=== PATIENT | male | born 1970 | race Caucasian/White ===

== ENCOUNTER 2017-03-11 21:20 | Emergency (ER) | payer BC ==
[2017-03-11 21:44] VITALS: BP 148/96
--- NOTE | 2017-03-11 21:56 | EDM.PDOC ---
ED HPI Trauma - General Chief Complaint: Upper Extremity Injury/Pain Stated Complaint: SMASHED MIDDLE FINGER LEFT HAND Time Seen by Provider: 03/11/17 21:51 Source: Reports: Patient History Limitations: Reports: No limitations - History of Present Illness INITIAL COMMENTS - FREE TEXT/NARRATIVE: 46-year-old male comes to the ED for evaluation of crush type injury to his left hand that occurred about 1500 hours today. It occurred as he was taking a break from off of his truck. He is not sure how it got pinched but basically the distal end of the third finger became crushed and impinged. Developing subungual hematoma since that time. Pain is constant and throbbing primarily in that finger. No open wounds or lacerations occurred. Does have a blood blister on the volar side of the third finger over the middle phalanx. Symptom Onset Date: 03/11/17 Symptom Onset Time: 15:00 Occurred When: this afternoon Occurred Where: home Method of Injury: other (First type injury.) Severity: moderate Pain/Injury Location: Reports: upper extremity, left (Left distal third finger with a subungual hematoma.) Consciousness: Reports: no loss of consciousness Associated Symptoms: Reports: no other symptoms Allergies/ADRs: Allergies No Known Allergies Allergy (Verified 03/11/17 21:44) Home Medications: Ambulatory Orders oxyCODONE HCl/Acetaminophen [Percocet 5-325 mg Tablet] 1 - 2 each PO Q4H PRN # 10 tablet 03/11/17 Past Medical History - Past Health History Medical/Surgical History: Denies Medical/Surgical History Social & Family History - Family History Family Medical History: Noncontributory - Tobacco Use Smoking Status *Q: Never Smoker - Caffeine Use Caffeine Use: Reports: None - Recreational Drug Use Recreational Drug Use: No - Living Situation & Occupation Living situation: Reports: Occupation: employed Review of Systems - Review of Systems Review Of Systems: See Below Constitutional: Reports: no symptoms Eyes: Reports: no symptoms Ears: Reports: no symptoms Nose: Reports: no symptoms Mouth/Throat: Reports: no symptoms Respiratory: Reports: No Symptoms Cardiovascular: Reports: no symptoms GI/Abdominal: Reports: No symptoms Genitourinary: Reports: no symptoms Musculoskeletal: Reports: no symptoms Skin: Reports: no symptoms Neurological: Reports: No Symptoms Psychiatric: Reports: no symptoms Trauma Exam - Physical Exam Exam: See Below Exam Limited By: No limitations General Appearance: Reports: alert, mild distress Extremities: Reports: other (Examination was limited to his left hand. Of note she is right-hand dominant. He has large subligamentous hematoma taking up the entire nailbed on the left distal finger. There is a blood blister proximally 8 mm in diameter over the mid middle phalanx of the volar surface. No other injuries to the hand are appreciated.) Neurologic: Reports: acid changer II-XII nml as tested, no motor/sensory deficits, alert , normal mood/affect, oriented x 3 Skin: Reports: Normal color, Warm/dry - Abell Coma Score Best Eye Response (Abell): (4) open spontaneously Best Verbal Response (Abell): (5) oriented Best Motor Response (Carlos): (6) obeys commands Abell Total: 15 Course - Vital Signs Last Recorded V/S: Last Vital Signs Temp 36.6 C 03/11/17 21:41 Pulse 66 03/11/17 21:41 Resp 18 03/11/17 21:41 BP 148/96 H 03/11/17 21:41 Pulse Ox 97 03/11/17 21:41 - Orders/Labs/Meds Orders: Active Orders 24 hr Category Date Time Status Hand Comp Min 3V Lt [CR] Stat Exams 03/11/17 21:52 Taken Meds: Medications Discontinued Medications Generic Name Dose Route Start Last Admin Trade Name Ian PRN Reason Stop Dose Admin Ibuprofen 600 mg 03/11/17 22:52 03/11/17 23:09 Motrin PO 03/11/17 22:53 600 mg ONETIME ONE Administration Metoclopramide HCl 10 mg 03/11/17 22:52 03/11/17 23:10 Reglan PO 03/11/17 22:53 10 mg ONETIME ONE Administration Oxycodone/Acetaminophen 2 tab 03/11/17 22:52 03/11/17 23:09 Percocet 325-5 Mg PO 03/11/17 22:53 2 tab ONETIME ONE Administration - Radiology Interpretation Free Text/Narrative:: 46-year-old male to the ED with a painful swollen left third finger. States was crushed between a break from and the rim of the wheel about 1500 hours today. He has subsequently developed a subungual hematoma of the distal aspect of the left third finger. X-rays will be done to rule out a fracture. Minimal coronary attempted drainage of the subungual hematoma. The management. - Re-Assessments/Exams Free Text/Narrative Re-Assessment/Exam: 03/11/17 22:53 x-ray of the hand reveals no fractures. Particularly no fracture the distal phalanx of the third finger. I will drill 3 holes in the nail to try and drain some of the subungual hematoma. Given 2 Percocet tabs 5- 325 We'll send him home with 10 Percocet 5/325 mg tablets for pain relief as needed.25 mg tablets and Motrin 600 mg and 10 mg of Reglan by mouth. 03/11/17 23:05 Drilled 3 holes in the nail bed to let off some blood. He would also obtain a heart water to see if we can get more blood to come out of the nailbed.will send him home with 10 Percocet 5 325 mg tablets to be used 2 tablets every 4-6 hours necessary for pain relief. Departure - Departure Time of Disposition: 23:06 Disposition: Home, Self-Care 01 Condition: fair Clinical Impression: Subungual hematoma of digit of hand Qualifiers: Encounter type: initial encounter Qualified Code(s): S60.10XA - Contusion of unspecified finger with damage to nail, initial encounter Prescriptions: oxyCODONE HCl/Acetaminophen [Percocet 5-325 mg Tablet] 1 - 2 each PO Q4H PRN # 10 tablet PRN Reason: pain relief. Referrals: PCP,None [Primary Care Provider] - Forms: ED Department Discharge Additional Instructions: evaluation in the emergency room tonight in regards to blunt trauma to the distal left third finger that occurred earlier this afternoon. Obvious collection of blood under the fingernail called subungual hematoma left third. X -rays of the finger did not reveal any broken bones. Treated by drilling 3 holes in the nail to the nailbed to let off some of the blood and relieve some of the pressure. Treated with Percocet tabs x2 and Motrin 600 mg by mouth. May need to use Percocet 5 325 mg tablets 2 tablets every 4-6 hours needed for pain relief the next day or 2. Daily cleanse the area with soap and water showering is okay. - My Orders Last 24 Hours: My Active Orders 03/11/17 21:52 Hand Comp Min 3V Lt [CR] Stat - Assessment/Plan Last 24 Hours: My Active Orders 03/11/17 21:52 Hand Comp Min 3V Lt [CR] Stat
[2017-03-11] MEDS ORDERED: Metoclopramide 10 MG Tab PO ONE (22:52)
[2017-03-11] MEDS ORDERED: Acetaminophen/oxyCODONE 325-5 MG Tab PO ONE (22:52)
[2017-03-11] MEDS ORDERED: Ibuprofen 600 MG Tab PO ONE (22:52)
--- NOTE | 2017-03-12 10:33 | CR ---
Left hand: Four views of the left hand were obtained. Comparison: No previous study. Mild degenerative change is noted within the MCP joint of the thumb. This degenerative change consists of subchondral cysts and mild joint space narrowing. Minimal deformity also noted within the distal first metacarpal possibly due to old injury. Deformity to the base of the distal phalanx of the second digit is seen compatible with old injury. Joint spaces otherwise are preserved within the left hand. No acute fracture, dislocation or other bony abnormality is seen. Soft tissue calcification noted off the volar PIP joint of the third digit which appears to be old and incidental. Impression: 1. Nothing acute is seen. Degenerative change is noted within the first MTP joint. Diagnostic code #2
== END 2017-03-11 23:15 | disposition home or self-care (01) ==
LOC: JD.ED 21:20
DX: S60.132A Contusion of left middle finger with damage to nail, initial encounter (principal); W23.0XXA Caught, crushed, jammed, or pinched between moving objects, initial encounter; Y92.009 Unspecified place in unspecified non-institutional (private) residence as the place of occurrence of the external cause
CPT/HCPCS: 11740; 73130; 99283; A9270

== ENCOUNTER 2018-04-01 19:11 | Emergency (ER) | payer BC ==
[2018-04-01 19:36] VITALS: BP 137/79
--- NOTE | 2018-04-01 19:55 | EDM.PDOC ---
ED HPI GENERAL MEDICAL PROBLEM - General Chief Complaint: Bite:Animal, Insect Stated Complaint: TICK ON BACK Time Seen by Provider: 04/01/18 19:29 Source of Information: Reports: Patient History Limitations: Reports: No Limitations - History of Present Illness INITIAL COMMENTS - FREE TEXT/NARRATIVE: The patient states that he was working outside this afternoon, when his sister noticed a red area on his back, and that when she examined him, she believed that she saw a tick under the skin. The patient states that he does not have any sensation to the area at all. He is concerned about Lyme disease. The patient does not have a PCP. - Related Data Allergies Allergy/AdvReac Type Severity Reaction Status Date / Time No Known Allergies Allergy Verified 04/01/18 19:23 Past Medical History - Past Surgical History HEENT Surgical History: Reports: Myringotomy w Tube(s) (bilateral), Oral Surgery ([place] teeth extraction), Tonsillectomy Social & Family History - Family History Family Medical History: Noncontributory - Tobacco Use Smoking Status *Q: Never Smoker - Caffeine Use Caffeine Use: Reports: None - Alcohol Use Alcohol Use History: Yes Alcohol Use Frequency: Socially - Recreational Drug Use Recreational Drug Use: No - Living Situation & Occupation Living situation: Reports: , Alone Occupation: Employed (tractor trailer moving van driver) ED ROS GENERAL - Review of Systems Review Of Systems: ROS reveals no pertinent complaints other than HPI. ED EXAM, GENERAL - Physical Exam Exam: See Below Exam Limited By: No Limitations General Appearance: Alert, WD/WN, No Apparent Distress Back Exam: Other (There is an irregular patch of erythema measuring approximately 1.5 cm diameter at its widest point. It is raised, but not tender. It is consistent with a local inflammatory reaction, but does not appear to be an infection. In the center of the erythema is a palpable sliver, possibly a plant thorn, less likely an insect proboscis. No actual insect is seen.) Course - Vital Signs Last Recorded V/S: Last Vital Signs Temp 36.8 C 04/01/18 19:20 Pulse 120 H 04/01/18 19:20 Resp 18 04/01/18 19:20 BP 137/79 04/01/18 19:20 Pulse Ox 99 04/01/18 19:20 - Re-Assessments/Exams Free Text/Narrative Re-Assessment/Exam: 04/01/18 19:49 The patient's sister told him that she saw a tick IN the skin on his back. I'm not sure what she saw, but on my examination, the patient has an approximately 1.5 cm irregularly-shaped area of erythema and induration on his back, and in the center of that, was what felt like a sliver, although I suppose could have been a plant thorn or the proboscis of an insect. I was able to remove it with some tweezers. The patient is concerned about acquiring Lyme disease. The CDC reports Lyme disease based on the county where a patient lives, not where they actually acquired Lyme disease. While not impossible, Lyme disease is not prevalent in [place]. Additionally, treatment would not be indicated unless the patient developed a target lesion, which is far too early at this time. Antibodies are not indicated. The patient was also concerned about an infection, but in reality, while local inflammatory reactions to the "saliva" that insects often inject in skin when taking a blood meal, are common, actual infections from insect bites are very rare. Even if an infection were to develop, it is far too early. Again, antibiotics are not indicated. Departure - Departure Time of Disposition: 19:53 Disposition: Home, Self-Care 01 Condition: Good Clinical Impression: Insect bite - Discharge Information Instructions: Insect Bite, Adult Referrals: PCP,None [Primary Care Provider] - Forms: ED Department Discharge Additional Instructions: You were seen in the emergency room over concern of a tick bite on your back. On examination, no tick was found, however, there was evidence of an insect bite. A sliver, versus plant thorn, versus insect proboscis, was removed from your back. As explained, antibiotics are not indicated. No further treatment is necessary, however, if the area becomes itchy, you may take an [id number] antihistamine, such as Claritin or Benadryl, and apply ice packs for 10-15 minutes, up to 5 times a day. You should expect complete resolution of your symptoms within 12 days. If any other problems, please do not hesitate to return to the ER.
== END 2018-04-01 20:00 | disposition home or self-care (01) ==
LOC: JD.ED 19:11
DX: S20.469A Insect bite (nonvenomous) of unspecified back wall of thorax, initial encounter (principal); W57.XXXA Bitten or stung by nonvenomous insect and other nonvenomous arthropods, initial encounter
CPT/HCPCS: 10120; 99281-25; 99283

== ENCOUNTER 2018-07-21 14:11 | Emergency (ER) | payer BC ==
[2018-07-21 14:54] VITALS: BP 133/84
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
[2018-07-21] MEDS ORDERED: Acetaminophen 325 MG Tab PO ONE (16:22)
--- NOTE | 2018-07-22 08:06 | CT ---
Head CT Technique: Multiple axial sections through the brain were obtained. Intravenous contrast was utilized. Comparison: No prior intracranial imaging is available. Findings: Ventricles along with basal cisterns and sulci over the convexities are within normal limits for the patient's age. No abnormal parenchymal densities are seen. No evidence of intracranial hemorrhage. No midline shift or mass effect is seen. Previous left mastoid surgery again noted. No acute calvarial abnormality is seen. Several minimal retention cysts are seen within the maxillary sinuses as well as mild nodular mucosal thickening within the ethmoid sinuses. Small metallic foreign body is seen within the superficial soft tissues within the upper right periorbital region. Impression: 1. Sinus findings which are incidental. 2. No acute intracranial abnormality is seen. No acute skull fracture is noted. 3. Small superficial soft tissue foreign body within the upper right periorbital soft tissues. Diagnostic code #2 I agree with preliminary report from [facility], finalized on 07/21/18, 4:52 PM Central Time (code #2)
--- NOTE | 2018-07-22 08:24 | CT ---
CT cervical spine Technique: Multiple axial sections were obtained from above C1 inferiorly to the mid T2 level. Reconstructed sagittal and coronal images were reviewed. Comparison: No prior cervical spine imaging. Findings: Mild degenerative change is noted between the dens and anterior arch of C1. Mild degenerative change is scattered within the apophyseal joints on both sides. Minimal disc space narrowing and vacuum phenomena is noted within the C3-4 disc. Prior surgery noted within the left mastoid sinus. Moderate right sided neural foraminal stenosis noted at C4-C5. Other neural foramina are patent. No bony central canal stenosis is seen. No fracture is seen. No abnormal subluxation is seen. Impression: 1. Degenerative change as noted above. Previous surgery within the left mastoid sinus. 2. Nothing acute is appreciated on CT study of the cervical spine. Diagnostic code #2 I agree with preliminary report from [facility], finalized on 07/21/18, 4:53 PM Central Time
== END 2018-07-21 16:35 | disposition home or self-care (01) ==
LOC: JD.ED 14:11
DX: S16.1XXA Strain of muscle, fascia and tendon at neck level, initial encounter (principal); S00.81XA Abrasion of other part of head, initial encounter; V57.5XXA Driver of pick-up truck or van injured in collision with fixed or stationary object in traffic accident, initial encounter
CPT/HCPCS: 70450; 72125; 99284; A9270

== ENCOUNTER 2020-12-11 18:51 | Emergency (ER) | payer BC ==
--- NOTE | 2020-12-11 20:04 | EDM.PDOC ---
ED HPI GENERAL MEDICAL PROBLEM - General Chief Complaint: Flank Pain Stated Complaint: POSSIBLE KIDNEY STONE Time Seen by Provider: 12/11/20 19:01 Source of Information: Reports: Patient History Limitations: Reports: No Limitations - History of Present Illness INITIAL COMMENTS - FREE TEXT/NARRATIVE: This is a 50-year-old male. He comes tonight because on Sunday he was having some left flank pain. On and Sunday it seemed to go away. Then last ate he had onset of pain again in the left flank. He says when he gets really bad it might go into the left groin area but he is hesitant to say that. He says occasionally if it is really bad he will have some nausea but no vomiting. But he does not make much emphasis on the nausea. He denies any urinary symptoms. He did state that Sunday night when he got up to urinate is when the pain hit him the worst. He has no history of kidney stones. He denies any fever or chills he denies any urinary tract symptoms. Left Shoulder Pain Score (Numeric/FACES): 7 Left Flank Pain Score (Numeric/FACES): 7 - Related Data Allergies Allergy/AdvReac Type Severity Reaction Status Date / Time No Known Allergies Allergy Verified 12/11/20 18:58 Home Meds: Home Meds . [No Known Home Meds] 07/21/18 [History] Past Medical History - Past Health History Medical/Surgical History: Denies Medical/Surgical History HEENT History: Reports: Hard of Hearing Cardiovascular History: Reports: High Cholesterol - Past Surgical History HEENT Surgical History: Reports: Myringotomy w Tube(s), Oral Surgery, Tonsillectomy GI Surgical History: Reports: Hernia, Inguinal Social & Family History - Family History Family Medical History: No Pertinent Family History - Tobacco Use Tobacco Use Status *Q: Never Tobacco User - Caffeine Use Caffeine Use: Reports: Coffee - Recreational Drug Use Recreational Drug Use: No - Living Situation & Occupation Living situation: Reports: , Alone 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 Denies: Abdominal Pain, Diarrhea, Vomiting : Reports: Flank Pain. Denies: Discharge, Dysuria Musculoskeletal: Reports: Back Pain Skin: Reports: No Symptoms Neurological: Reports: No Symptoms Psychiatric: Reports: No Symptoms Hematologic/Lymphatic: Reports: No Symptoms ED EXAM, RENAL/ - Physical Exam Exam: See Below Exam Limited By: No Limitations General Appearance: Alert, WD/WN, No Apparent Distress Eye Exam: Bilateral Eye: Normal Inspection Ears: Normal External Exam Nose: Normal Inspection Throat/Mouth: Normal Inspection, Normal Lips, Normal Voice, No Airway Compromise Head: Normocephalic Neck: Supple Respiratory/Chest: No Respiratory Distress, Lungs Clear, Normal Breath Sounds Cardiovascular: Regular Rate, Rhythm, No Murmur GI/Abdominal: Soft, Other (Patient left lower quadrant does not reveal any tenderness even deep palpation. Bowel sounds are positive there is no other acute findings of his abdomen.) Back Exam: Normal Inspection, Full Range of Motion, CVA Tenderness (L), Other (Have some mild tenderness in the flank on palpation. This suggest more of a muscular skeletal type pain. When I do the CVA tenderness it is slightly more on the left but he does not jump out of the stretcher.). No: CVA Tenderness (R) Extremities: Normal Inspection, Normal Range of Motion Neurological: Alert, Oriented Psychiatric: Normal Affect, Normal Mood Skin Exam: Warm, Dry Course - Orders/Labs/Meds Orders: Active Orders 24 hr Category Date Time Status Abdomen Pelvis wo Cont [CT] Stat Exams 12/11/20 20:28 Taken Labs: Laboratory Tests 12/11/20 12/11/20 12/11/20 Range/Units 19:37 19:37 19:45 WBC 8.15 (4.23-9.07) K/mm3 RBC 4.68 (4.63-6.08) M/mm3 Hgb 13.8 (13.7-17.5) gm/dl Hct 41.4 (40.1-51.0) % MCV 88.5 (79.0-92.2) fl MCH 29.5 (25.7-32.2) pg MCHC 33.3 (32.2-35.5) g/dl RDW Std Deviation 39.6 (35.1-43.9) fL Plt Count 280 (163-337) K/mm3 MPV 9.3 L (9.4-12.3) fl Neut % (Auto) 64.7 (34.0-67.9) % Lymph % (Auto) 24.0 (21.8-53.1) % Moca % (Auto) 8.5 (5.3-12.2) % Eos % (Auto) 2.2 (0.8-7.0) Baso % (Auto) 0.2 (0.1-1.2) % Neut # (Auto) 5.27 (1.78-5.38) K/mm3 Lymph # (Auto) 1.96 (1.32-3.57) K/mm3 Moca # (Auto) 0.69 (0.30-0.82) K/mm3 Eos # (Auto) 0.18 (0.04-0.54) K/mm3 Baso # (Auto) 0.02 (0.01-0.08) K/mm3 Sodium 146 H (136-145) mEq/L Potassium 3.6 (3.5-5.1) mEq/L Chloride 109 H (98-107) mEq/L Carbon Dioxide 27 (21-32) mEq/L Anion Gap 13.6 (5-15) BUN 12 (7-18) mg/dL Creatinine 1.0 (0.7-1.3) mg/dL Est Cr Clr Drug Dosing 114.25 mL/min Estimated GFR (MDRD) > 60 (>60) mL/min BUN/Creatinine Ratio 12.0 L (14-18) Glucose 110 H (74-106) mg/dL Calcium 8.8 (8.5-10.1) mg/dL Total Bilirubin 0.4 (0.2-1.0) mg/dL AST 11 L (15-37) U/L ALT 19 (16-63) U/L Alkaline Phosphatase 58 (46-116) U/L Total Protein 6.4 (6.4-8.2) g/dl Albumin 3.8 (3.4-5.0) g/dl Globulin 2.6 gm/dL Albumin/Globulin Ratio 1.5 (1-2) Urine Color Yellow (Yellow) Urine Appearance Clear (Clear) Urine pH 6.0 (5.0-8.0) Ur Specific [place] 1.025 (1.005-1.030) Urine Protein Negative (Negative) Urine Glucose (UA) Negative (Negative) Urine Ketones Negative (Negative) Urine Occult Blood Negative (Negative) Urine Nitrite Negative (Negative) Urine Bilirubin Negative (Negative) Urine Urobilinogen 0.2 (0.2-1.0) Ur Leukocyte Esterase Negative (Negative) Urine RBC 0-5 (0-5) /hpf Urine WBC 0-5 (0-5) /hpf Ur Squamous Epith Cells Not seen (0-5) /hpf Urine Bacteria Occasional (FEW) /hpf Urine Mucus Not seen (FEW) /hpf - Radiology Interpretation Free Text/Narrative:: CT scan of the abdomen and pelvis without contrast did not show any acute renal abnormalities or bowel abnormalities. There were no stones. The appendix was normal. He did have some mild wall thickening of the bladder suggesting cystitis but we have coordinated that with laboratory findings that suggest he might have chronic outlet obstruction. - Re-Assessments/Exams Free Text/Narrative Re-Assessment/Exam: 12/11/20 21:30 I spoke to the patient and his significant other regarding the CT scan results and the blood work. I do not believe his pain is a kidney stone and I think it is musculoskeletal. He cannot seem to remember who what he might have done to hurt his back but I cautioned him about doing a lot of bending lifting and twisting because that will aggravate his symptoms. I suggested he take Aleve to help with the soreness in the pain and to follow-up with his family doctor if it seems like is going to worsen. Departure - Departure Time of Disposition: 21:31 Disposition: Home, Self-Care 01 Condition: Good Clinical Impression: Muscular abdominal pain in left flank - Discharge Information *PRESCRIPTION DRUG MONITORING PROGRAM REVIEWED*: Not Applicable *COPY OF PRESCRIPTION DRUG MONITORING REPORT IN PATIENT SOPHIE: Not Applicable Instructions: Musculoskeletal Pain Referrals: PCP,None [Primary Care Provider] - Forms: ED Department Discharge Additional Instructions: At some Aleve and take it as per the instructions on the bottle for your pain, over the next 3 or 4 days you need to be very careful about bending lifting or twisting since that will aggravate your left flank pain. Use heat to the flank to help with the muscle soreness. Follow-up with your family doctor later this week for recheck or if your symptoms seem to worsen, return to the ER if needed Sepsis Event Note (ED) - Evaluation Sepsis Screening Result: No Definite Risk - My Orders Last 24 Hours: My Active Orders 12/11/20 20:28 Abdomen Pelvis wo Cont [CT] Stat - Assessment/Plan Last 24 Hours: My Active Orders 12/11/20 20:28 Abdomen Pelvis wo Cont [CT] Stat
--- NOTE | 2020-12-12 10:45 | CT ---
CT abdomen and pelvis Technique: Multiple axial sections were obtained from above the dome of the diaphragm inferiorly to the pubic symphysis. Intravenous and oral contrast was not utilized. Reconstructed coronal and sagittal images were obtained. Comparison: No prior abdominal imaging is available. Findings: Visualized lung bases show nothing acute. Heart is slightly enlarged. Noncontrast appearance of the liver shows no focal abnormality. Spleen appears normal in shape. Small amount of accessory splenic tissue is noted medially to the spleen. Adrenal glands show no nodule. Pancreas shows no discrete abnormality. Gallbladder is mostly collapsed with no calcified gallstones. Kidneys show no abnormal calcifications. Low density finding is noted within the right kidney compatible with a cyst which measures 1.0 cm in size. No ureteral dilatation or ureteral stone is seen. Abdominal aorta shows no aneurysm. No retroperitoneal adenopathy is appreciated. Appendix is seen which is normal. No pelvic mass or adenopathy is seen. Bladder wall is minimally thickened most likely relating to the patient's age. Prostate gland is minimally enlarged. No inflammatory change or free fluid is appreciated. Multiple surgical clips are seen anteriorly within the lower pelvis. Bone window settings were reviewed. Mild scattered degenerative change is present. Degenerative change is most prominent at L5-S1 with vacuum phenomena. Impression: 1. No renal calculi or ureteral dilatation is seen. 2. Slight bladder wall thickening most likely relating to age. 3. Other nonacute findings as noted above. Nothing acute is definitely appreciated. Diagnostic code #2 I agree with preliminary report from [facility], finalized on 12/11/20, 10:04 PM [employer]
== END 2020-12-11 21:54 | disposition home or self-care (01) ==
LOC: JD.ED 18:51
DX: R10.9 Unspecified abdominal pain (principal); M25.512 Pain in left shoulder; R11.0 Nausea; M54.9 Dorsalgia, unspecified
CPT/HCPCS: 36415; 74176; 74176-26; 80053; 81001; 85025; 99284; 99284-25

== ENCOUNTER 2022-07-22 13:04 | Emergency (ER) | payer BC ==
[2022-07-22] MEDS ORDERED: Sodium Chloride 0.9% 1,000 ML IV ONE (13:05)
[2022-07-22] MEDS ORDERED: Sodium Chloride 0.9% 10 ML Syringe FLUSH PRN (13:24)
[2022-07-22] MEDS ORDERED: Aspirin 81 MG Tab.Chew PO ONE (13:24)
[2022-07-22] MEDS ORDERED: Sodium Chloride 0.9% 1,000 ML IV SCH (13:30)
[2022-07-22 13:51] LABS: ESTIMATED GFR 56 mL/min (>60)
[2022-07-22] MEDS ORDERED: Iopamidol 755 MG/ML 50 ML Bottle IVPUSH ONE ×2 (13:58)
[2022-07-22] MEDS ORDERED: Sodium Chloride 0.9% 100 ML IV SCH (14:00)
[2022-07-22 16:03] VITALS: BP 121/83; PULSE 102
== END 2022-07-22 14:41 ==
LOC: JD.ED 13:04
DX: I24.9 Acute ischemic heart disease, unspecified (principal); Z20.822 Contact with and (suspected) exposure to COVID-19
CPT/HCPCS: 36415; 71045; 71275; 80053; 83605; 83735; 84484; 85025; 85379; 87635; 93005; 96360; 99285; A9270; J3490; J7030; Q9967; 93010; U0002

== ENCOUNTER 2022-10-07 21:28 | Emergency (ER) | payer BC ==
[2022-10-07 22:02] VITALS: BP 180/98; PULSE 60
== END 2022-10-07 22:55 | disposition home or self-care (01) ==
LOC: JD.ED 21:28
DX: K08.89 Other specified disorders of teeth and supporting structures (principal)
CPT/HCPCS: 99282

== ENCOUNTER 2023-03-25 15:17 | Emergency (ER) | payer BC ==
[2023-03-25] MEDS ORDERED: Ondansetron 4 MG/2 ML SDV IVPUSH ONE (15:28)
[2023-03-25] MEDS ORDERED: HYDROmorphone 1 MG/ML Syringe IVPUSH STA (15:28)
[2023-03-25] MEDS ORDERED: Sodium Chloride 0.9% 10 ML Syringe FLUSH PRN (15:29)
[2023-03-25] MEDS ORDERED: Sodium Chloride 0.9% 1,000 ML IV SCH (15:30)
[2023-03-25 15:47] LABS: APPEARANCE,URINE CLEAR (Clear); BILIRUBIN,URINE NEGATIVE (Negative); COLOR,URINE YELLOW (Yellow); GLUCOSE,URINE NEGATIVE (Negative); KETONES,URINE NEGATIVE (Negative); LEUKOCYTE ESTERASE,URINE NEGATIVE (Negative); NITRITE,URINE NEGATIVE (Negative); OCCULT BLOOD,URINE NEGATIVE (Negative); PROTEIN,URINE NEGATIVE (Negative); UROBILINOGEN,URINE 0.2 (0.2-1.0)
[2023-03-25 15:53] LABS: BACTERIA,URINE OCCASIONAL /hpf (FEW); MUCUS,URINE FEW /hpf (FEW); RBC,URINE 0-5 /hpf (0-5); SQUAMOUS EPITHELIAL CELLS,UR 0-5 /hpf (0-5); WBC,URINE 0-5 /hpf (0-5)
[2023-03-25 16:17] LABS: BASOPHILS ABSOLUTE AUTO 0.01 K/mm3 (0.01-0.08); BASOPHILS PERCENT AUTO 0.2 % (0.1-1.2); EOSINOPHILS ABSOLUTE AUTO 0.14 K/mm3 (0.04-0.54); EOSINOPHILS PERCENT AUTO 2.3 (0.8-7.0); HEMATOCRIT 41.8 % (40.1-51.0); HEMOGLOBIN 14.2 gm/dl (13.7-17.5); IMMATURE GRAN ABSOLUTE AUTO 0.04 K/mm3 (0.00-0.10); IMMATURE GRAN PERCENT AUTO 0.6 % (<=1.0); LYMPHOCYTES ABSOLUTE AUTO 1.78 K/mm3 (1.32-3.57); LYMPHOCYTES PERCENT AUTO 28.7 % (21.8-53.1); MEAN CORPUSCULAR HEMOGLOBIN 29.8 pg (25.7-32.2); MEAN CORPUSCULAR VOLUME 87.6 fl (79.0-92.2); MEAN PLATELET VOLUME 9.5 fl (9.4-12.3); MONOCYTES ABSOLUTE AUTO 0.71 K/mm3 (0.30-0.82); MONOCYTES PERCENT AUTO 11.4 % (5.3-12.2); NEUTROPHILS ABSOLUTE AUTO 3.53 K/mm3 (1.78-5.38); NEUTROPHILS PERCENT AUTO 56.8 % (34.0-67.9); PLATELET COUNT,PLT 258 K/mm3 (163-337); RED BLOOD CELL COUNT 4.77 M/mm3 (4.63-6.08); WHITE BLOOD CELL COUNT,WBC 6.21 K/mm3 (4.23-9.07)
[2023-03-25 16:43] LABS: A/G RATIO 1.3 (1-2); ALBUMIN 3.8 g/dl (3.4-5.0); BILIRUBIN TOTAL 0.4 mg/dL (0.2-1.0); CALCIUM 9.3 mg/dL (8.5-10.1); EST CRCL DRUG DOSING (CG) 111.71 mL/min; PROTEIN TOTAL,TP 6.7 g/dl (6.4-8.2)
[2023-03-25 18:26] VITALS: BP 112/70; PULSE 49
== END 2023-03-25 18:25 | disposition home or self-care (01) ==
LOC: JD.ED 15:17
DX: R10.9 Unspecified abdominal pain (principal)
CPT/HCPCS: 36415; 74176; 80053; 81001; 85025; 96361; 96374; 96375; 99284; J1170; J2405; J3490; J7030